=== PATIENT | male | born 1990 | race Caucasian/White ===

== ENCOUNTER 2019-06-15 00:38 | Emergency (ER) | payer SELFPAY ==
[2019-06-15 01:10] VITALS: BP 122/73; PULSE 77; RESP 22; TEMP 36.7; BMI 34.7
--- NOTE | 2019-06-15 01:17 | DI.RAD.S_ITS ---
PROCEDURE: XR CHEST 2V INDICATIONS: cough TECHNIQUE: 2 views of the chest were acquired. COMPARISON: None. FINDINGS: Surgical changes and devices: None. Lungs and pleura: Lungs are clear. No pleural effusions or pneumothorax. Mediastinum: Mediastinal contours are normal. Heart size is normal. Bones and chest wall: No suspicious bony abnormalities. Soft tissues appear unremarkable. IMPRESSION: No acute cardiopulmonary disease process. Dictated by: Nirmala Mcmahan MD, PhD on 06/15/2019 at 8:16 Approved by: Nirmala Mcmahan MD, PhD on 06/15/2019 at 8:16
--- NOTE | 2019-06-15 04:22 | ED.URI ---
HPI - URI/Sore Throat General Chief Complaint: Upper Respiratory Symptoms Stated Complaint: bad cough x 1 wk headache Time Seen by Provider: 06/15/19 04:14 Source: patient Mode of arrival: Ambulatory Limitations: no limitations History of Present Illness HPI Narrative: The patient has been ill for 2 weeks. He developed cough about 2 weeks ago. He has no associated ear pressure. He is having headaches and facial pain. He is taking Mucinex to some improvement but is still having frequent cough. He has no associated sore throat. Cough is nonproductive. He has no fever. He has no associated chest pain. He has no GI symptoms. He is a cigarette smoker. He does not have asthma. Related Data Previous Rx's Medication Instructions Recorded amoxicillin 500 mg PO TID 10 Days #30 cap 06/15/19 Review of Systems Review of Systems ROS Unobtainable: All systems reviewed & are unremarkable except as noted in HPI and below Constitutional Constitutional: Denies chills, Denies fever(s) and Denies lethargy Eyes Eyes: Denies change in vision, Denies eye discharge, Denies irritation and Denies loss of vision ENT Ears, Nose, Mouth, and Throat: Denies change in voice, Reports nasal discharge, Denies neck pain, Reports sinus pressure and Denies sore throat Cardiovascular Cardiovascular: Denies chest pain, Denies lightheadedness, Denies palpitations and Denies orthopnea Respiratory Respiratory: Reports cough and Denies wheezing Gastrointestinal Gastrointestinal: Denies abdominal pain and Denies vomiting Musculoskeletal Musculoskeletal: Denies back pain and Denies neck pain Integumentary/Breasts Skin/Breast: Denies pruritus, Denies erythema, Denies rash and Denies wounds Neurologic Neurologic: Denies loss of vision Endocrine Endocrine: Denies palpitations Allergic/Immunologic Allergic/Immunologic: Denies wheezing Patient History Medical History (Updated 06/15/19 @ 04:35 by Sumit Cline MD) No chronic diseases present (Acute) Surgical History (Updated 06/15/19 @ 04:34 by Sumit Cline MD) No significant past surgical history (Acute) No significant past surgical history (Acute) Social History Smoking Status: Current every day smoker Smoking Status: Current every day smoker tobacco type: cigarettes alcohol intake frequency: 0-2 drinks per day Substance Use Type: does not use Exam Initial Vital Signs Initial Vital Signs: Vital Signs Temperature 98.0 F 06/15/19 01:10 Pulse Rate 77 06/15/19 01:10 Respiratory Rate 22 06/15/19 01:10 Blood Pressure 122/73 06/15/19 01:10 Const General: cooperative and well developed Nutritional Appearance: well nourished [facility] Head: normocephalic and atraumatic Ears: external ears normal and TM's normal bilaterally Nose: external nose normal and nasal discharge Face and sinus: face symmetric, sinus tenderness ethmoid and No dry mucous membranes Mouth: oral mucosae normal and moist mucous membranes Teeth and gingiva: dentition normal Throat: tonsils normal and uvula midline Eyes Conjunctivae: conjunctivae normal Neck Neck: No lymphadenopathy Resp Effort & Inspection: normal respiratory effort, able to speak in complete sentences, no respiratory distress and no use of accessory muscles Auscultation: clear to auscultation bilaterally, no rales, no rhonchi and no wheezes Cardio Rate: regular rate Rhythm: regular rhythm Heart Sounds: no click, no gallops, no murmurs and no rubs Pulses: normal peripheral pulses Course Orders Ordered: ED Orders 06/15/19 01:17 XR chest 2V Stat Vital Signs Vital signs: Vital Signs - 8 hr 06/15/19 01:10 Temperature 98.0 F Pulse Rate 77 Respiratory Rate 22 Blood Pressure 122/73 MDM - URI/Sore Throat Imaging Data Chest x-ray: My Impression: Normal Discharge Plan Departure Patient Disposition: Home Clinical Impression: Acute ethmoidal sinusitis Qualifiers: Recurrence: non-recurrent Qualified Code(s): J01.20 - Acute ethmoidal sinusitis, unspecified Instructions: DI for Sinusitis Activity Restrictions/Additional Instructions: Use Mucinex per package instructions help with the congestion. Amoxicillin 3 times daily as prescribed. Drink plenty of fluids, stay well hydrated. I would recommend you stop smoking. Follow-up here or see her doctor if symptoms persist. Prescriptions: New amoxicillin 500 mg capsule 500 mg PO TID 10 Days Qty: 30 RF: 0
[2019-06-15 04:25] VITALS: BP 124/73; PULSE 75; RESP 16; O2SAT 98
== END 2019-06-15 04:25 | disposition home or self-care (01) ==
PROVIDERS: Emergency Provider Emergency Medicine
DX: J01.20 Acute ethmoidal sinusitis, unspecified (principal)
CPT/HCPCS: 71046; 99281; 99283

== ENCOUNTER 2019-11-10 18:30 | Emergency (ER) | payer BC, SELFPAY ==
[2019-11-10 18:36] VITALS: BP 143/87; PULSE 96; RESP 15; TEMP 37; O2SAT 98; BMI 34.7
--- NOTE | 2019-11-10 18:40 | DI.RAD.S_ITS ---
PROCEDURE: XR CHEST 1V INDICATIONS: chest pain TECHNIQUE: One view of the chest was acquired. COMPARISON: [facility], CR, XR CHEST 2V, 06/15/2019, 1:17. FINDINGS: Surgical changes and devices: None. Lungs and pleura: Lungs are clear. No pleural effusions or pneumothorax. Mediastinum: Mediastinal contours appear normal. Heart size is normal. Bones and chest wall: No suspicious bony lesions. Overlying soft tissues appear unremarkable. IMPRESSION: No acute disease. Dictated by: Palmer Roger M.D. on 11/10/2019 at 19:40 Approved by: Palmer Roger M.D. on 11/10/2019 at 19:40
[2019-11-10 19:27] LABS: Add Manual Diff / Slide Review NO; Basophils Absolute Auto 200 /uL (0-100); Basophils Percent Auto 1.9 % (0-2); Eosinophils Absolute Auto 100 /uL (0-450); Eosinophils Percent Auto 1.1 % (2-4); Hematocrit 44.1 % (41-53); Hemoglobin 15.1 g/dL (13.5-17.5); Lymphocytes Absolute Auto 2100 /uL (1100-4500); Lymphocytes Percent Auto 25.5 % (25-40); Mean Corpuscular HGB Conc 34.3 % (30-36); Mean Corpuscular Hemoglobin 28.2 PG (26-34); Mean Corpuscular Volume 82.2 fL (80-100); Monocytes Absolute Auto 600 /uL (0-900); Neutrophils Absolute Auto 5300 /uL (1500-7000); Neutrophils Percent Auto 64.5 % (50-75); Platelet Count 346 X10^3/uL (150-400); Red Blood Cell Count 5.37 X10^6/uL (4.5-5.9); Red Cell Distribution Width 13.1 % (11.6-14.8); White Blood Cell Count 8.2 X10^3/uL (4.5-11.0)
[2019-11-10 19:32] LABS: Prothrombin Time 11.6 SECONDS (10.1-12.7)
[2019-11-10 19:35] LABS: PTT Partial Thromboplastin Tim 35 SECONDS (26.4-36.2)
[2019-11-10 19:39] LABS: Alanine Aminotransferase 41 IU/L (<50); Albumin 4.6 g/dL (3.5-5.0); Albumin Globulin Ratio 1.3 (1.0-2.8); Alkaline Phosphatase 83 U/L (38-126); Aspartate Aminotransferase 32 IU/L (17-59); BUN Creatinine Ratio 13.1 (6-22); Bilirubin Total 0.5 mg/dL (0.2-1.3); Blood Urea Nitrogen 13 mg/dL (9-20); Calcium 9.2 mg/dL (8.4-10.2); Carbon Dioxide 24 mmol/L (22-32); Chloride 108 mmol/L (98-107); Creatine Kinase 75 U/L (55-170); Estimated Glomerular Filt Rate > 60.0 mL/min (>60); Globulin 3.6 g/dL (1.7-4.1); Glucose 93 mg/dL (70-100); HEMOLYSIS < 15 (0-50); Lipase 87 U/L (23-300); Sodium 141 mmol/L (137-145); Total Protein 8.2 g/dL (6.3-8.2)
--- NOTE | 2019-11-10 19:48 | ED.CHESTPAIN ---
HPI - Chest Pain General Chief Complaint: Chest Pain Stated Complaint: chest pain,dizziness Time Seen by Provider: 11/10/19 18:55 Source: patient Mode of arrival: Ambulatory Limitations: no limitations History of Present Illness HPI narrative: 29-year-old male here for evaluation of right-sided, central chest pain. He states it has been going on for the past 5 days has been occasional. States that it is positional. He states when he is getting into position like he is trying to grab something out of the backseat of the car while sitting in the front seat of a car is what reproduces his symptoms. Not necessarily worse with palpation. No shortness of breath. Has not tried anything for symptoms prior to arrival. Related Data Allergies Allergy/AdvReac Type Severity Reaction Status Date / Time No Known Drug Allergies Allergy Verified 11/10/19 18:36 Review of Systems Constitutional Constitutional: Denies fever(s) Cardiovascular Cardiovascular: Reports chest pain and Denies dyspnea Respiratory Respiratory: Denies dyspnea Gastrointestinal Gastrointestinal: Denies abdominal pain and Denies change in bowel habits Musculoskeletal Musculoskeletal: Denies arthralgias and Denies myalgias Integumentary/Breasts Skin/Breast: Denies rash Neurologic Neurologic: Denies behavioral changes Psychiatric Psychiatric: Denies behavioral changes Patient History Medical History No chronic diseases present (Acute) Surgical History (Updated 06/15/19 @ 04:34 by Sumit Cline MD) No significant past surgical history (Acute) No significant past surgical history (Acute) Social History Smoking Status: Current every day smoker Smoking Status: Current every day smoker tobacco type: cigarettes alcohol intake frequency: holidays/special occasions only Substance Use Type: does not use Exam Initial Vital Signs Initial Vital Signs: Vital Signs Temperature 98.6 F 11/10/19 18:36 Pulse Rate 96 H 11/10/19 18:36 Respiratory Rate 15 11/10/19 18:36 Blood Pressure 143/87 H 11/10/19 18:36 Pulse Oximetry 98 11/10/19 18:36 Const General: cooperative and comfortable Limitations: mental status not altered HENMT Head: normal to inspection and normocephalic Chest Chest: No crepitus and No tenderness Resp Effort & Inspection: normal respiratory effort Auscultation: clear to auscultation bilaterally Cardio Rate: regular rate Rhythm: regular rhythm Skin Lesions: no lesions Rashes: no rashes Neuro General: patient alert, patient awake and patient oriented x3 Cognition: abnormal cognition Speech: speech abnormal Extrem General: normal to inspection and capillary refill normal Psych Appearance: grossly normal and well kempt Scores HEART Score Heart Score history: Slightly Suspicious Heart Score EKG: Non-Specific repolarization disturbance Heart Score Age: < 45 years old Heart Score risk factors: No known risk factors Heart Score troponin: < or = to normal limit Heart Score Total: 1 Course Orders Ordered: ED Orders 11/10/19 18:40 XR chest 1V Stat EKG-12 Lead Stat 11/10/19 19:08 Complete Blood Count AUTO DIFF Stat Comprehensive Metabolic Panel Stat Lipase Stat Partial Thromboplastin Time Stat Prothrombin Time INR Stat Troponin & CK Cardiac Panel Stat Vital Signs Vital signs: Vital Signs - 8 hr 11/10/19 20:46 Pulse Rate 82 Respiratory Rate 16 Blood Pressure 142/86 H Pulse Oximetry 99 MDM - Chest Pain Lab Data Attestation: I reviewed the patient's lab results. Result diagrams: 11/10/19 19:08 11/10/19 19:08 Labs: Lab Results 11/10/19 11/10/19 11/10/19 Range/Units 19:08 19:08 19:08 WBC 8.2 (4.5-11.0) X10^3/uL RBC 5.37 (4.5-5.9) X10^6/uL Hgb 15.1 (13.5-17.5) g/dL Hct 44.1 (41-53) % MCV 82.2 (80-100) fL MCH 28.2 (26-34) PG MCHC 34.3 (30-36) % RDW 13.1 (11.6-14.8) % Plt Count 346 (150-400) X10^3/uL Neut % (Auto) 64.5 (50-75) % Lymph % (Auto) 25.5 (25-40) % Park % (Auto) 7.0 (3-14) % Eos % (Auto) 1.1 L (2-4) % Baso % (Auto) 1.9 (0-2) % Neut # (Auto) 5300 (5945-1701) /uL Lymph # (Auto) 2100 (3533-7760) /uL Park # (Auto) 600 (0-900) /uL Eos # (Auto) 100 (0-450) /uL Baso # (Auto) 200 H (0-100) /uL PT 11.6 (10.1-12.7) SECONDS INR 1.0 (0.9-1.3) APTT 35 (26.4-36.2) SECONDS Sodium 141 (137-145) mmol/L Potassium 4.0 (3.4-5.1) mmol/L Chloride 108 H (98-107) mmol/L Carbon Dioxide 24 (22-32) mmol/L BUN 13 (9-20) mg/dL Creatinine 0.99 (0.66-1.25) mg/dL Estimated GFR > 60.0 (>60) mL/min BUN/Creatinine Ratio 13.1 (6-22) Glucose 93 (70-100) mg/dL Calcium 9.2 (8.4-10.2) mg/dL Total Bilirubin 0.5 (0.2-1.3) mg/dL AST 32 (17-59) IU/L ALT 41 (<50) IU/L Alkaline Phosphatase 83 (38-126) U/L Total Creatine Kinase 75 (55-170) U/L CK-MB (CK-2) TNP CK-MB (CK-2) Rel Index TNP Troponin I < 0.012 (0.01-0.034) ng/mL Total Protein 8.2 (6.3-8.2) g/dL Albumin 4.6 (3.5-5.0) g/dL Globulin 3.6 (1.7-4.1) g/dL Albumin/Globulin Ratio 1.3 (1.0-2.8) Lipase 87 (23-300) U/L Imaging Data Chest x-ray: Radiologist's Impression: [address] [address] XRay Report Signed Patient: Higinio Shi KMR#: [id number] : 1990Acct:[id number] Age/Sex: 29 / MDate of Service: 11/10/19 Loc: ED Accession Number: [id number] Procedure: XR chest 1V Ordering Provider: Jayro Ge D.O. PROCEDURE: XR CHEST 1V INDICATIONS: chest pain TECHNIQUE: One view of the chest was acquired. COMPARISON: Located [facility], CR, XR CHEST 2V, 06/15/2019, 1:17. FINDINGS: Surgical changes and devices: None. Lungs and pleura: Lungs are clear. No pleural effusions or pneumothorax. Mediastinum: Mediastinal contours appear normal. Heart size is normal. Bones and chest wall: No suspicious bony lesions. Overlying soft tissues appear unremarkable. IMPRESSION: No acute disease. Dictated by: Palmer Roger M.D. on 11/10/2019 at 19:40 Approved by: Palmer Roger M.D. on 11/10/2019 at 19:40 ECG Data Attestation: I personally reviewed and interpreted this ECG as follows: Prior ECG tracings: not available for review Interpretation: Sinus rhythm Ventricular rate is 72 Sinus arrhythmia Left axis deviation LVH Normal QTC No ST T wave changes MDM Narrative Medical decision making narrative: Chest x-ray is unremarkable, low suspicion for ACS, this is positional discomfort that has been going on for the past 5 days. Low risk heart score. I feel we can hold on further workup for now. Patient stated that he would rather not take any ibuprofen. We did discuss return precautions and follow-up instructions. He expressed understanding and agreement. Discharge Plan Departure Patient Disposition: Home Clinical Impression: Chest wall pain Discharge Date/Time: 11/10/19 20:47 Instructions: DI for Costochondritis Activity Restrictions/Additional Instructions: Your workup today points against an emergent issue such as pneumonia or a heart attack. I do recommend that you take a anti inflammatory like we discussed. Contact your primary provider for a follow-up. Return to the emergency department for any new or worsening symptoms
[2019-11-10 19:50] LABS: Troponin I < 0.012 ng/mL (0.01-0.034)
[2019-11-10 20:46] VITALS: BP 142/86; PULSE 82; RESP 16; O2SAT 99
== END 2019-11-10 20:47 | disposition home or self-care (01) ==
PROVIDERS: Emergency Provider Emergency Medicine
DX: R07.89 Other chest pain (principal)
CPT/HCPCS: 36415; 71045; 80053; 82550; 83690; 84484; 85025; 85610; 85730; 93005; 99284